=== PATIENT | female | born 1960 | race Caucasian/White ===

== ENCOUNTER 2019-03-29 21:42 | Emergency (ER) | payer OTHER ==
[~2019-03-29] VITALS: Ht 162.6 cm; Wt 102.1 kg
[~2019-03-29 21:42] MED LIST: ENALAPRIL MALEA10 MG; LISINOPRIL5 MG PO; TRAMADOL HCL-AP1 TAB PO
[2019-03-29] MEDS ORDERED: SKELAXIN800 MG PO (23:32)
[2019-03-29] MEDS ORDERED: KETO10TA2 PO (23:32)
== END 2019-03-30 00:48 | disposition home or self-care (01) ==
LOC: ER 21:42
DX: S13.4XXA Sprain of ligaments of cervical spine, initial encounter (principal); S30.0XXA Contusion of lower back and pelvis, initial encounter; S80.01XA Contusion of right knee, initial encounter; V49.9XXA Car occupant (driver) (passenger) injured in unspecified traffic accident, initial encounter; Y93.89 Activity, other specified; Y92.488 Other paved roadways as the place of occurrence of the external cause; Y99.8 Other external cause status

== ENCOUNTER → 2019-08-04 | Emergency (ER) | payer OTHER ==
[~2019-08-04] VITALS: Ht 157.5 cm; Wt 81.6 kg
[~2019-08-04] MED LIST changes: +KETO10TA2 PO; +METOPROLOL SUCC25 MG; +SKELAXIN800 MG PO
== END | disposition home or self-care (01) ==
LOC: ER 13:49
DX: J45.998 Other asthma (principal); B34.9 Viral infection, unspecified

== ENCOUNTER 2020-06-05 06:30 | Emergency (ER) | payer OTHER ==
[~2020-06-05] VITALS: Ht 157.5 cm; Wt 81.6 kg
== END 2020-06-05 10:32 | disposition home or self-care (01) ==
LOC: ER 06:30
DX: R10.31 Right lower quadrant pain (principal)